=== PATIENT | female | born 1965 | race Caucasian/White ===

== ENCOUNTER 2016-12-05 09:30 | Emergency (ER) | payer OTHER ==
[2016-12-05 09:53] VITALS: RESP 18; TEMP 98
--- NOTE | 2016-12-05 09:57 | CPEKG ---
Heart Rate: 63 RR Interval: 952 P-R Interval: 192 QRSD Interval: 102 QT Interval: 436 QTC Interval: 447 P Meeker: 26 QRS Meeker: -28 T Wave Meeker: 58 EKG Severity - BORDERLINE ECG - EKG Impression: SINUS RHYTHM EKG Impression: BORDERLINE LEFT AXIS DEVIATION EKG Impression: BORDERLINE R WAVE PROGRESSION, ANTERIOR LEADS Electronically Signed By: Zachariah Perdomo 06-Dec-2016 17:21:37
[2016-12-05 10:06] LABS: % IMMATURE GRANULYOCYTES 0.2 % (0.0-1.1); ABSOLUTE IMMATURE GRANULOCYTES 0.01 10^3/uL (0.00-0.10); ADD DIFF? NO; ADD MORPH? NO; ADD SCAN? NO; ATYPICAL LYMPHOCYTE FLAG 10 (0-99); FRAGMENT RBC FLAG 0 (0-99); HEMATOCRIT 40.1 % (38.0-47.0); HEMOGLOBIN 13.8 g/dL (12.6-16.3); LEFT SHIFT FLG 0 (0-99); LIPEMIA HEMOLYSIS FLAG 90 (0-99); MEAN CELL HEMOGLOBIN 31.8 pg (27.9-34.1); MEAN CELL HEMOGLOBIN CONCENTR. 34.4 g/dL (32.4-36.7); MEAN CELL VOLUME 92.4 fL (81.5-99.8); MEAN PLATELET VOLUME 9.2 fL (8.7-11.7); PLATELET CLUMPS FLAG 10 (0-99); PLATELET COUNT 230 10^3/uL (150-400); RED BLOOD CELL COUNT 4.34 10^6/uL (4.18-5.33); RED CELL DISTRIBUTION WIDTH 11.5 % (11.5-15.2)
[2016-12-05 10:17] LABS: INR 1.03 (0.83-1.16); PROTIME(PATIENT) 13.2 SEC (12.0-15.0)
[2016-12-05 10:18] LABS: APTT 33.5 SEC (23.0-38.0)
[2016-12-05 10:23] LABS: ALANINE AMINOTRANSFERASE 41 IU/L (9-52); ALBUMIN 3.9 g/dL (3.5-5.0); ALKALINE PHOSPHATASE 61 IU/L (38-126); ANION GAP 13 mEq/L (8-16); ASPARTATE AMINOTRANSFERASE 32 IU/L (14-46); BILIRUBIN,TOTAL 0.8 mg/dL (0.1-1.4); CALCIUM 8.9 mg/dL (8.5-10.4); CARBON DIOXIDE 27 mEq/l (22-31); CHLORIDE 102 mEq/L (97-110); CREATININE 0.9 mg/dL (0.6-1.0); GLOMERULAR FILTRATION RATE > 60; GLUCOSE 78 mg/dL (70-100); SODIUM 142 mEq/L (134-144); TOTAL PROTEIN 6.8 g/dL (6.3-8.2)
[2016-12-05 10:30] LABS: TROPONIN I < 0.012 ng/mL (0-0.034)
--- NOTE | 2016-12-05 11:57 | UCPHY ---
H & P Time Seen by Provider: 12/05/16 09:44 Patient Type: Established HPI/ROS: 51-year-old female presents complaining of epigastric pain intermittently for several weeks our worse recently, states she has also been quite stressed at work. Review of systems As per HPI General no fever no chills no weakness HEENT no eye pain no eye discharge. No eye redness, no sore throat Respiratory no cough, no shortness of breath Cardiac no chest pain, no peripheral edema GI positive abdominal pain, no diarrhea, no constipation, no nausea, no vomiting no flank pain, no hematuria, no dysuria Musculoskeletal no myalgias, no joint pain Heme no easy bruising, no easy bleeding Endo no polyuria, no polydipsia Skin no rashes, no pruritus Neuro no syncope, no dizziness, no headaches Psych is no suicidal ideation, no homicidal ideation Past Medical/Surgical History: History of cardiac ablation in 2008 Social History: Works in a hospital Smoking Status: Never smoked Physical Exam: 51-year-old female alert and oriented no acute distress nontoxic appearance HEENT atraumatic normocephalic, extraocular muscles intact, anicteric Oropharynx negative for erythema negative exudate, tolerating her own secretions Neck supple no meningismus Lungs clear to auscultation bilaterally Heart regular rate and rhythm without murmur rub or gallop Abdomen nondistended normoactive bowel sounds soft mild epigastric tenderness no guarding no rebound no pulsatile mass Back no CVA tenderness, no step-offs, no spinal tenderness Extremities no cyanosis clubbing or edema Neuro alert and oriented, no focal deficits Constitutional: Initial Vital Signs Temperature (C) 36.6 C 12/05/16 09:42 Heart Rate 75 12/05/16 09:42 Respiratory Rate 18 12/05/16 09:42 Blood Pressure 100/43 L 12/05/16 09:42 O2 Sat (%) 95 12/05/16 09:42 O2 Delivery Mode Room Air Allergies/Adverse Reactions: amoxicillin Allergy (Verified 12/05/16 09:47) cefazolin [From Ancef] Allergy (Verified 12/05/16 09:47) cephalexin [From Keflex] Allergy (Verified 12/05/16 09:47) levofloxacin [From Levaquin] Allergy (Verified 12/05/16 09:47) Penicillins Allergy (Verified 12/05/16 09:46) Home Medications: Medication Instructions Recorded Bystolic 12/05/16 Cymbalta 12/05/16 Estradiol 12/05/16 Flexeril 12/05/16 Pantoprazole Sodium [Protonix 40mg 40 mg PO DAILY #30 tab 12/05/16 (*)] Symbicort 160-4.5 Mcg Inh (*) 12/05/16 Medical Decision Making - Diagnostics EKG Interpretation: Normal sinus rhythm Imaging Results: Chest x-ray normal ED Course/Re-evaluation: Patient seen and evaluated for epigastric pain intermittently for the last several weeks the worse over last few days EKG normal sinus rhythm Chest x-ray negative for infiltrate or effusion Labs all within normal limits, specifically troponin, lipase, D-dimer negative Ultrasound gallbladder negative for cholelithiasis Given IV fluid, Zofran. Famotidine Differential diagnosis considered Peptic ulcer disease, gastritis, cholecystitis, pancreatitis, myocardial infarction, pulmonary embolus Impression/plan Epigastric brain, possible gastritis possible peptic ulcer disease We will start on pantoprazole 40 mg q.day Stress Follow-up with PCP - Data Points Laboratory Results: Laboratory Results 12/05/16 09:59 12/05/16 09:59 Departure - Departure Disposition: Home, Routine, Self-Care Clinical Impression: Epigastric pain Condition: Good Instructions: Peptic Ulcer (ED), Diet for Stomach Ulcers and Gastritis (ED), Gas and Bloating (ED), Abdominal Pain (ED) Referrals: Gifty Neumann MD [Primary Care Provider] - As per Instructions Prescriptions: Pantoprazole Sodium [Protonix 40mg (*)] 40 mg PO DAILY #30 tab - PQRS PQRS Measurement: Not applicable
[2016-12-05 12:20] VITALS: BP 100/52; PULSE 78; O2SAT 97
== END 2016-12-05 12:18 | disposition home or self-care (01) ==
LOC: CED 09:30
DX: R10.13 Epigastric pain (principal); R14.0 Abdominal distension (gaseous)
CPT/HCPCS: 76705-PO; 80053-PO; 83690-PO; 84484-PO; 85025-PO; 85378-PO; 85610-PO; 85730-PO; G0463-PO

== ENCOUNTER → 2017-03-07 | Outpatient (CLI) | payer OTHER | LOC: FIMAGING 18:53 | PROVIDERS: ATTEND Family Medicine | DX: M48.02 Spinal stenosis, cervical region (principal) ==